=== PATIENT | female | born 1935 | race Caucasian/White ===

== ENCOUNTER → 2016-11-02 | Outpatient (CLI) | payer OTHER ==
[~2016-11-02] MED LIST: AMLO2.5T PO; AMOX500C3 PO; ASPEC325 PO; ATOR-22 PO; CALC-354 PO; LORA-741 PO; MULT-506 PO; OMEG10007 PO; OXYB5TAB74 PO; SENNTAB23 PO
--- NOTE | 2016-11-02 13:37 | DIAGNOSTIC IMAGING REPORT ---
LEFT VENOUS DOPP LOWER EXT UNILAT CLINICAL HISTORY: LEFT LEG PAIN, VARICOSITIES EDEMA pain. Edema. TECHNIQUE: Venous Doppler COMPARISON STUDY: None FINDINGS: 'S is negative for deep venous thrombosis. Several patent venous varicosities of the lower leg. No evidence for superficial thrombophlebitis. IMPRESSION: Normal study with no evidence of deep venous thrombosis. Several patent superficial varicosities. The above report was generated using voice recognition software. It may contain grammatical, syntax or spelling errors. Electronically signed by: Cleveland Osman M.D. 11/02/2016 1:36 PM Dictated Date/Time: 11/02/2016 1:32 PM
== END | disposition home or self-care (01) ==
LOC: C.ULTRBC 12:55
PROVIDERS: ATTEND Family Medicine
DX: I83.90 Asymptomatic varicose veins of unspecified lower extremity (principal); R60.9 Edema, unspecified

== ENCOUNTER → 2017-08-01 | Outpatient (CLI) | payer OTHER ==
[~2017-08-01] MED LIST changes: +DTR/5 PO; -OXYB5TAB74 PO
--- NOTE | 2017-08-01 15:55 | DIAGNOSTIC IMAGING REPORT ---
LEFT LOWER EXTREMITY VENOUS DOPPLER HISTORY: LEFT LEG EDEMA/SWELLING/R/O DVT COMPARISON STUDY: None. FINDINGS: There is normal compressibility, flow, and augmentation within the left lower extremity deep venous system. There are multiple patent superficial varicosities seen within the lateral distal thigh/knee. IMPRESSION: No DVT within the left lower extremity. Electronically signed by: Luis Miguel Acuna M.D. 08/01/2017 3:53 PM Dictated Date/Time: 08/01/2017 3:53 PM
== END | disposition home or self-care (01) ==
LOC: C.ULTR 15:17
PROVIDERS: ATTEND Family Medicine
DX: R60.0 Localized edema (principal); M79.662 Pain in left lower leg

== ENCOUNTER 2017-11-08 19:29 | Emergency (ER) | payer OTHER ==
[~2017-11-08] VITALS: Ht 157.5 cm; Wt 60.8 kg
[2017-11-08 19:32] VITALS: TEMP 36.9; Ht 157.5 cm; Wt 60.8 kg
--- NOTE | 2017-11-08 20:52 | DIAGNOSTIC IMAGING REPORT ---
HEAD WITHOUT CONTRAST (CT) CLINICAL HISTORY: 82 years-old Female presenting with fall hit head. TECHNIQUE: Multidetector CT imaging of the head was performed without the use of intravenous contrast. IV contrast: None. A dose lowering technique was used consistent with the principles of ALARA (as low as reasonably achievable). COMPARISON: None. CT DOSE (mGy.cm): The estimated cumulative dose is 874.43. FINDINGS: [employer] Writers topogram: Unremarkable. Ventricles and sulci normal in size. Brain parenchyma normal in appearance with preserved jalloh-white differentiation. No mass effect or midline shift. No hemorrhage or acute territorial infarct. No extra-axial fluid collection. Mild apparent thickening of the tentorial dura. Paranasal sinuses and mastoid air cells clear. Calvarium intact. IMPRESSION: 1. Mild apparent thickening of the tentorial dura. An acute subdural hematoma is considered less likely, however, if there is clinical concern, noncontrast brain MR could be obtained. No other evidence of acute intracranial pathology. Electronically signed by: Grady Driver M.D. 11/08/2017 8:51 PM Dictated Date/Time: 11/08/2017 8:48 PM
--- NOTE | 2017-11-08 21:06 | DIAGNOSTIC IMAGING REPORT ---
CERVICAL SPINE W/O CLINICAL HISTORY: 82 years-old Female presenting with fall neck pain . TECHNIQUE: Multidetector CT of the cervical spine was performed without the use of intravenous contrast. IV contrast: None. A dose lowering technique was used consistent with the principles of ALARA (as low as reasonably achievable). COMPARISON: None. CT DOSE (mGy.cm): The estimated cumulative dose is 874.43 mGy.cm. 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 Normal cervical lordosis. Vertebral bodies demonstrate mild height loss at C5 and C6, which may be due to osteopenia and multilevel degenerative changes. Multilevel intervertebral disc height loss with disc osteophyte complexes noted at nearly every level to varying degrees. Mild posterior bony spurring, most severe at C4-5. Disc osteophyte complexes/uncovertebral hypertrophy and facet arthropathy result in osseous neural foraminal narrowing on the left at C3-4, left greater than right at C4-5, left greater than right at C5-6, and on the left at C6-7. No acute fracture or acute malalignment. Significant degenerative changes of the atlantodental articulation. Cystic change in the dens noted likely from degenerative change. Skull base intact. Lung apices clear. Paraspinal soft tissues within normal limits apart from atherosclerosis. IMPRESSION: 1. No acute osseous injury of the cervical spine. 2. Multilevel degenerative changes with multilevel osseous neural foraminal narrowing. Electronically signed by: Grady Driver M.D. 11/08/2017 9:04 PM Dictated Date/Time: 11/08/2017 9:01 PM
--- NOTE | 2017-11-08 21:35 | DIAGNOSTIC IMAGING REPORT ---
THORACIC SPINE 3 VIEWS ROUTINE CLINICAL HISTORY: 82 years-old Female presenting with fall r lower back pain . TECHNIQUE: 3 views of the thoracic spine were obtained. COMPARISON: Chest x-ray from 07/28/2014. FINDINGS: Mild levocurvature of the thoracic spine. Mildly exaggerated thoracic kyphosis. Overlapping osseous structures in the upper thoracic spine somewhat limits evaluation in this region. Apparent mild anterior vertebral body height loss of one of the mid to upper thoracic vertebral bodies, though this may be due to scoliotic curvature. This is new from 2014. No severe compression deformity. No subluxation. Intervertebral disc heights preserved. Disc osteophyte complexes noted at several levels. Atherosclerosis of aortic arch. Visualized portion of the lungs clear. IMPRESSION: 1. Apparent mild compression deformity of one of the mid to upper thoracic vertebral bodies though this may be due to scoliotic curvature of the spine. Correlate for point tenderness. Apart from this, no convincing evidence of acute osseous injury. 2. Mild multilevel degenerative changes. Electronically signed by: Grady Driver M.D. 11/08/2017 9:34 PM Dictated Date/Time: 11/08/2017 9:30 PM
--- NOTE | 2017-11-08 21:38 | DIAGNOSTIC IMAGING REPORT ---
CHEST 2 VIEWS ROUTINE CLINICAL HISTORY: 82 years-old Female presenting with fall r rib pain . TECHNIQUE: PA and lateral views of the chest were obtained. COMPARISON: 07/28/2014. FINDINGS: Atherosclerosis of the aortic arch. Cardiac silhouette enlarged. Lungs and pleural spaces clear. Osteopenia may be present. Degenerative changes of the bilateral glenohumeral joints. No gross evidence of a displaced rib fracture. Mild apparent compression deformity of one of the mid to upper thoracic vertebral body levels. This may be new since 2014. Scoliotic curvature in the lumbar spine limits evaluation of this region. IMPRESSION: 1. Cardiomegaly. No other convincing evidence of acute cardiopulmonary disease. 2. Osteopenia with possible mild compression deformity of one of the mid to upper thoracic vertebral body levels. Electronically signed by: Grady Driver M.D. 11/08/2017 9:37 PM Dictated Date/Time: 11/08/2017 9:34 PM
[2017-11-08 21:51] LABS: BASO % 0.3 %; BASO ABS # 0.03 K/uL (0-0.2); EOS % 0.7 %; EOS ABS # 0.08 K/uL (0-0.5); HEMATOCRIT 43.6 % (37-47); HEMOGLOBIN 14.6 g/dL (12.0-16.0); IG# 0.03 K/uL (0.00-0.02); LYMPH % 12.6 %; LYMPH ABS # 1.45 K/uL (1.2-3.4); MEAN CELL VOLUME 90.3 fL (80-100); MEAN CORPUSCULAR HEMOGLOBIN 30.2 pg (25-34); MEAN CORPUSCULAR HGB CONC 33.5 g/dl (32-36); MEAN PLATELET VOLUME 9.6 fL (7.4-10.4); MONO % 6.2 %; MONO ABS # 0.72 K/uL (0.11-0.59); NEUT % 79.9 %; NEUT ABS # 9.23 K/uL (1.4-6.5); PLATELET COUNT 177 K/uL (130-400); RED CELL DISTRIBUTION WIDTH CV 14.4 % (11.5-14.5); RED CELL DISTRIBUTION WIDTH SD 47.1 fL (36.4-46.3); WHITE BLOOD COUNT 11.54 K/uL (4.8-10.8)
[2017-11-08] MEDS ORDERED: ATOR-24 PO (21:52)
[2017-11-08] MEDS ORDERED: MULT1CAP16 PO (21:52)
[2017-11-08] MEDS ORDERED: ASPECOTC PO (21:52)
[2017-11-08] MEDS ORDERED: CITA10TA4 PO (21:52)
[2017-11-08] MEDS ORDERED: AMLO10TA2 PO (21:52)
[2017-11-08 22:15] LABS: ALBUMIN 3.8 gm/dl (3.4-5.0); CREATININE 0.71 mg/dl (0.60-1.20); POTASSIUM 3.5 mmol/L (3.5-5.1); TOTAL PROTEIN 7.4 gm/dl (6.4-8.2)
--- NOTE | 2017-11-08 22:21 | DIAGNOSTIC IMAGING REPORT ---
ORBITS FOR MRI CLINICAL HISTORY: 82 years-old Female presenting with ? fb. TECHNIQUE: 3 views of the orbits were obtained. COMPARISON: CT head from earlier today. FINDINGS: No radiopaque intraorbital foreign body. Bony orbits grossly intact. Paranasal sinuses grossly clear. Visualized portion of the calvarium intact. IMPRESSION: No intraorbital metallic foreign body to preclude MRI exam. Electronically signed by: Grady Driver M.D. 11/08/2017 10:20 PM Dictated Date/Time: 11/08/2017 10:19 PM
[2017-11-08 23:59] VITALS: BP 146/74; PULSE 68; O2SAT 93
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
--- NOTE | 2017-11-09 07:58 | DIAGNOSTIC IMAGING REPORT ---
BRAIN WITHOUT CONTRAST HISTORY: 82 years-old Female ? SDH acute head injury status post fall COMPARISON: CT head 11/08/2017 TECHNIQUE: Multiplanar multisequence MRI of the brain was obtained without the use of IV contrast. FINDINGS: There is no restricted diffusion to suggest acute acute infarction. 6 mm focus of increased diffusion-weighted signal about the right frontal lobe centrum semiovale with intermediate signal on ADC map and increased signal on the T2/FLAIR series suggests T2 shine through. Midline structures including the corpus callosum, brainstem, optic chiasm, pituitary and pineal glands appear unremarkable on the sagittal T1 series. No cerebellar tonsillar herniation. Degenerative changes about the imaged cervical spine. No acute intracranial hemorrhage, midline shift, abnormal extra-axial collections, hydrocephalus or intracranial mass. Mild atrophy. Moderate patchy foci of T2/FLAIR prolongation about the white matter suggests chronic microvascular ischemic changes. No pathologic blooming artifact on the T2 star series. Prior bilateral cataract repair. Mild mucosal thickening of the right maxillary antrum. The remaining paranasal sinuses are generally clear. Trace left mastoid effusion. Skull and soft tissues are unremarkable. IMPRESSION: 1. No acute intracranial abnormality identified, specifically no evidence of acute subdural hematoma. 2. Mild atrophy with chronic microvascular ischemic changes. 3. Mild right maxillary sinus disease. The above report was generated using voice recognition software. It may contain grammatical, syntax or spelling errors. Electronically signed by: Renny Kamara M.D. 11/09/2017 7:56 AM Dictated Date/Time: 11/09/2017 7:51 AM
== END 2017-11-09 00:08 | disposition home or self-care (01) ==
LOC: C.EDB 19:30
DX: S00.03XA Contusion of scalp, initial encounter (principal); W05.2XXA Fall from non-moving motorized mobility scooter, initial encounter; Y92.89 Other specified places as the place of occurrence of the external cause; M48.54XA Collapsed vertebra, not elsewhere classified, thoracic region, initial encounter for fracture; Z79.82 Long term (current) use of aspirin; Z79.899 Other long term (current) drug therapy; Z88.2 Allergy status to sulfonamides